=== PATIENT | male | born 1985 | race Hispanic/Latino ===

== ENCOUNTER 2021-07-16 07:28 | Emergency (ER) | payer OTHER ==
[~2021-07-16] VITALS: Ht 165.1 cm; Wt 90.7 kg
[2021-07-16 08:03] LABS: BASOPHILS % (AUTO) 0.6 % (0.0-5.0); EOSINOPHILS % (AUTO) 0.4 % (0.0-8.0); HEMATOCRIT 47.4 % (42-54); LYMPHOCYTES % (AUTO) 22.8 % (21.0-51.0); MEAN CORPUSCULAR HEMOGLOBIN 31.6 pg (27.0-33.0); MEAN CORPUSCULAR VOLUME 92.9 fL (79-99); MONOCYTES % (AUTO) 6.3 % (3.0-13.0); NEUTROPHILS % (AUTO) 69.7 % (40.0-77.0); PLATELET COUNT (AUTO) 340 K/uL (130-400); RED CELL DISTRIBUTION WIDTH 11.9 % (11.0-15.5); WHITE BLOOD COUNT (AUTO) 11.2 K/uL (4.8-10.8)
[2021-07-16 08:22] LABS: ALBUMIN 4.7 g/dL (3.5-5.0); CREATININE 1.1 mg/dL (0.5-1.5); POTASSIUM 3.4 mmol/L (3.5-5.1); TOTAL PROTEIN, SERUM 8.7 g/dL (6.0-8.3)
[2021-07-16] MEDS ORDERED: 0.9%NACL 1000ML 1,000 ML IV ONE ×2 (09:15→14:30)
[2021-07-16] MEDS ORDERED: LORAZEPAM 2 MG/ML 1 ML VIAL IVP SCH (10:30)
[2021-07-16 11:50] VITALS: BP 130/89
[2021-07-16 13:31] LABS: APPEARANCE,URINE Cloudy (CLEAR); BILIRUBIN,URINE Negative (NEGATIVE); COLOR,URINE Yellow (YELLOW); GLUCOSE, URINE (UA) Negative (NEGATIVE); KETONES,URINE >=80 mg/dL (NEGATIVE); LEUKOCYTE ESTERASE ,URINE Trace (NEGATIVE); NITRATE,URINE Negative (NEGATIVE); OCCULT BLOOD,URINE Small (NEGATIVE); PH,URINE >=9.0 (5.0-8.0); PROTEIN,URINE Trace mg/dL (NEGATIVE)
[2021-07-16 13:39] LABS: AMPHET/METH SCREEN,URINE NEGATIVE (NEGATIVE); BARBITURATE SCREEN, URINE NEGATIVE (NEGATIVE); BENZODIAZEPINES SCREEN,URINE NEGATIVE (NEGATIVE); CANNABINOID SCREEN,URINE POSITIVE (NEGATIVE); COCAINE SCREEN,URINE NEGATIVE (NEGATIVE); OPIATE SCREEN,URINE NEGATIVE (NEGATIVE); PHENCYCLIDINE SCREEN,URINE NEGATIVE (NEGATIVE)
[2021-07-16 13:44] LABS: AMORPHOUS SEDIMENT,UR Few /LPF (None Seen); BACTERIA,URINE Rare /HPF (None Seen); MUCUS,URINE Moderate LPF (None Seen); RBC,URINE 0-1 /HPF (0-1); SQUAMOUS EPITHELIAL CELL,UR Rare /HPF (0-2); WBC,URINE 0-1 /HPF (0-1)
== END 2021-07-16 15:22 | disposition home or self-care (01) ==
LOC: EDH 07:28
DX: S00.83XA Contusion of other part of head, initial encounter (principal); E86.0 Dehydration; F45.8 Other somatoform disorders; R29.0 Tetany; Z79.899 Other long term (current) drug therapy; X58.XXXA Exposure to other specified factors, initial encounter; Y93.89 Activity, other specified; Y92.89 Other specified places as the place of occurrence of the external cause; Y99.8 Other external cause status
CPT/HCPCS: 36415; 70450; 80053; 80305; 81001; 85025; 93005 ×2; 96361; 96374; 99285; J2060; J7030 ×2

== ENCOUNTER 2022-09-18 23:24 | Emergency (ER) | payer OTHER ==
[~2022-09-18] VITALS: Ht 167.6 cm; Wt 91.6 kg
[2022-09-18] MEDS ORDERED: TETRACAINE HCL 0.5% 4 ML OPHTH SOLN ONE (23:40)
[2022-09-18] MEDS ORDERED: FLUORESCEIN SODIUM 1 STRIP STRIP ONE (23:40)
[2022-09-18 23:44] LABS: BASOPHILS % (AUTO) 0.5 % (0.0-5.0); EOSINOPHILS % (AUTO) 2.5 % (0.0-8.0); HEMATOCRIT 42.2 % (42-54); LYMPHOCYTES % (AUTO) 20.5 % (21.0-51.0); MEAN CORPUSCULAR HEMOGLOBIN 31.4 pg (27.0-33.0); MEAN CORPUSCULAR HGB CONC 33.9 g/dL (32.0-36.0); MEAN CORPUSCULAR VOLUME 92.5 fL (79-99); MONOCYTES % (AUTO) 8.7 % (3.0-13.0); NEUTROPHILS % (AUTO) 67.5 % (40.0-77.0); PLATELET COUNT (AUTO) 274 K/uL (130-400); RED BLOOD CELL COUNT(AUTO) 4.56 MIL/uL (4.50-6.20); RED CELL DISTRIBUTION WIDTH 11.9 % (11.0-15.5); WHITE BLOOD COUNT (AUTO) 9.7 K/uL (4.8-10.8)
[2022-09-18 23:54] LABS: CREATININE 1.1 mg/dL (0.5-1.5); POTASSIUM 3.4 mmol/L (3.5-5.1)
[2022-09-18 23:58] LABS: ALBUMIN 3.9 g/dL (3.5-5.0); TOTAL PROTEIN, SERUM 7.3 g/dL (6.0-8.3)
[2022-09-19] MEDS ORDERED: TETRACAINE HCL 0.5% 4 ML OPHTH SOLN OP SCH
[2022-09-19] MEDS ORDERED: FLUORESCEIN SODIUM 1 STRIP STRIP OP SCH
[2022-09-19 04:27] VITALS: BP 112/68
[2022-09-19] MEDS ORDERED: ERYTHROMYCIN BASE 0.5% OPHTH OINT 1 GM TUBE OS ONE (04:30)
== END 2022-09-19 04:27 | disposition home or self-care (01) ==
LOC: EDH 23:24
DX: R51.9 Headache, unspecified (principal); H11.422 Conjunctival edema, left eye; Z90.49 Acquired absence of other specified parts of digestive tract
CPT/HCPCS: 36415; 70450; 71045; 80053; 84484; 85025; 93005

== ENCOUNTER 2024-04-18 07:26 | Emergency (ER) | payer BC ==
[~2024-04-18] VITALS: Ht 165.1 cm; Wt 86.2 kg
[2024-04-18 09:16] LABS: PROTHROMBIN TIME 10.8 SEC (9.6-11.6)
[2024-04-18 09:17] LABS: PARTIAL THROMBOPLASTIN TIME 29.1 SEC (26.3-35.5)
[2024-04-18] MEDS: FAMOTIDINE 20MG VIAL IV ONE (09:17)
[2024-04-18] MEDS: ONDANSETRON 4MG INJ IVP ONE (09:18)
[2024-04-18] MEDS: MORPHINE 2 MG SYG IVP ONE (09:18)
[2024-04-18 09:22] LABS: BASOPHILS # (AUTO) 0.04 K/uL (0.00-0.20); BASOPHILS % (AUTO) 0.6 % (0.0-5.0); EOSINOPHILS # (AUTO) 0.18 K/uL (0.00-0.70); EOSINOPHILS % (AUTO) 2.7 % (0.0-8.0); HEMATOCRIT 45.5 % (42-54); IMMATURE GRANULOCYTE ABSOLUTE 0.02 K/uL (0-1); LYMPHOCYTES # (AUTO) 1.1 K/uL (1.0-4.8); LYMPHOCYTES % (AUTO) 16.6 % (21.0-51.0); MEAN CORPUSCULAR HEMOGLOBIN 31.6 pg (27.0-33.0); MEAN CORPUSCULAR HGB CONC 34.7 g/dL (32.0-36.0); MONOCYTES # (AUTO) 0.5 K/uL (0.1-1.0); MONOCYTES % (AUTO) 6.8 % (3.0-13.0); NEUTROPHILS # (AUTO) 4.8 K/uL (1.8-7.7); PLATELET COUNT (AUTO) 287 K/uL (130-400); RED CELL DISTRIBUTION WIDTH 11.9 % (11.0-15.5); WHITE BLOOD COUNT (AUTO) 6.6 K/uL (4.8-10.8)
[2024-04-18 09:36] LABS: APPEARANCE,URINE CLEAR (CLEAR); BILIRUBIN,URINE NEGATIVE (NEGATIVE); COLOR,URINE COLORLESS (YELLOW); GLUCOSE, URINE (UA) NEGATIVE (NEGATIVE); KETONES,URINE NEGATIVE (NEGATIVE); LEUKOCYTE ESTERASE ,URINE NEGATIVE Leu/uL (NEGATIVE); NITRATE,URINE NEGATIVE (NEGATIVE); OCCULT BLOOD,URINE NEGATIVE (NEGATIVE); PH,URINE 7.5 (5.0-8.0); PROTEIN,URINE NEGATIVE (NEGATIVE); UROBILINOGEN,URINE 0.2 mg/dL (0.2-1.0)
[2024-04-18 09:38] LABS: BILIRUBIN,TOTAL 0.7 mg/dL (0.2-1.0); CREATININE 0.8 mg/dL (0.5-1.3); POTASSIUM 3.9 mmol/L (3.5-5.1); TOTAL PROTEIN, SERUM 7.4 g/dL (6.0-8.3)
[2024-04-18 09:41] LABS: ADD UA MICROSCOPIC NO
[2024-04-18] MEDS ORDERED: FAMO10TA39 PO (09:44)
[2024-04-18 10:36] VITALS: BP 106/77; PULSE 89; RESP 17; O2SAT 98
== END 2024-04-18 10:36 | disposition home or self-care (01) ==
LOC: EDH 07:26
DX: K29.70 Gastritis, unspecified, without bleeding (principal); R11.2 Nausea with vomiting, unspecified; K21.9 Gastro-esophageal reflux disease without esophagitis; Z90.49 Acquired absence of other specified parts of digestive tract; Z90.89 Acquired absence of other organs
CPT/HCPCS: 99284; 96374; 96375; 84484; 80053; 83690; 85025; 85610; 85730; 83605; 81003; 36415; 93005; J3490; J2270; J2405

== ENCOUNTER 2024-10-10 22:25 | Emergency (ER) | payer BC ==
[~2024-10-10] VITALS: Ht 167.6 cm; Wt 81.6 kg
[~2024-10-10 22:25] MED LIST: FAMO10TA39 PO
[2024-10-10 23:33] LABS: RAPID GROUP A STREP negative (NEGATIVE)
[2024-10-10 23:41] LABS: INFLUENZA TYPE A Negative For Type A (NEGATIVE); INFLUENZA TYPE B Negative For Type B (NEGATIVE)
[2024-10-10 23:47] LABS: SARS-CoV-2, RNA, NAAT NEGATIVE SARS CoV-2 (NEGATIVE)
[2024-10-11 00:11] LABS: BASOPHILS # (AUTO) 0.08 K/uL (0.00-0.20); BASOPHILS % (AUTO) 0.5 % (0.0-5.0); EOSINOPHILS # (AUTO) 0.58 K/uL (0.00-0.70); EOSINOPHILS % (AUTO) 3.7 % (0.0-8.0); HEMATOCRIT 42.2 % (42-54); IMMATURE GRANULOCYTE ABSOLUTE 0.04 K/uL (0-1); LYMPHOCYTES # (AUTO) 1.4 K/uL (1.0-4.8); LYMPHOCYTES % (AUTO) 8.7 % (21.0-51.0); MEAN CORPUSCULAR HEMOGLOBIN 31.9 pg (27.0-33.0); MEAN CORPUSCULAR HGB CONC 34.4 g/dL (32.0-36.0); MONOCYTES % (AUTO) 6.6 % (3.0-13.0); NEUTROPHILS # (AUTO) 12.7 K/uL (1.8-7.7); NEUTROPHILS % (AUTO) 80.2 % (40.0-77.0); PLATELET COUNT (AUTO) 300 K/uL (130-400); RED BLOOD CELL COUNT(AUTO) 4.54 MIL/uL (4.50-6.20); WHITE BLOOD COUNT (AUTO) 15.8 K/uL (4.8-10.8)
[2024-10-11 00:27] LABS: CREATININE 0.8 mg/dL (0.5-1.3); POTASSIUM 3.4 mmol/L (3.5-5.1)
[2024-10-11] MEDS: 0.9%NACL 1000ML 1,000 ML IV ONE (00:27)
[2024-10-11] MEDS: acetaMINOPHEN 500 MG TABLET PO ONE (00:27)
--- NOTE | 2024-10-11 00:31 | HMCIMG ---
CHEST 1VW HISTORY: Cough COMPARISON: 09/18/2022 FINDINGS: A frontal projection of the chest was obtained. Mild bilateral pulmonary infiltrates are seen may be related to mild pulmonary vascular congestion with possible superimposed pneumonitis. The heart is normal in size. No evidence of aortic calcification is seen. IMPRESSION: 1. Mild bilateral pulmonary infiltrates.
[2024-10-11 00:41] LABS: B-TYPE NATRIURETIC PEPTIDE < 5 pg/mL (0-100); WBC MORPHOLOGY CONSISTENT W/DIFF
[2024-10-11 00:42] LABS: PLATELET MORPHOLOGY LARGE PLTS PRESENT
[2024-10-11 01:17] VITALS: PULSE 94; RESP 18
[2024-10-11] MEDS: IpraTROPium/alBUTERol SULFATE 3 ML SOLUTION IH ONE (01:17)
--- NOTE | 2024-10-11 02:18 | ERN ---
ED Note History of Present Illness Stated Complaint: CHEST PAIN Chief Complaint: Cough Time Seen by MD: 22:30 Time Seen by Midlevel: 22:30 Dictation: The patient is a 39-year-old male with history of appendectomy who presents to the emergency department with complaints of chills, nasal congestion, nonproductive cough, shortness of breath and chest pain with coughing onset 2 hours ago. Allergies: Coded Allergies: No Known Drug Allergies (Unverified Allergy, Unknown, 07/16/21) Home Meds Active Scripts Famotidine (Pepcid AC) 10 Mg Tablet, 10 MG PO BID for 7 Days, #14 TAB Prov:RADHA ESTEVEZ MD 04/18/24 Past Medical History Past Medical History: No Pertinent History Surgical History: None Surgical History Other: EGD RN Note Reviewed/Agreed w/PFSH: Yes Review of System Dictation Constitutional: Negative for fever, and weight loss positive for chills Eyes: Negative for injury, pain,redness, and discharge ENT: Negative for injury,pain or swelling Cardiovascular: Negative for chest pain, palpitations, and edema Respiratory: Negative for and wheezing, positive for shortness of breath, cough, Abdomen/GI: Negative for abdominal pain, nausea, vomiting, diarrhea, and constipation Back: Negative for injury and pain : Negative for injury, bleeding and discharge MS/Extremity: Negative for injury and deformity Skin: Negative for rash, and discoloration Neuro: Negative for headache, weakness, numbness, tingling, and seizure Psych: Negative for suicide ideation, homicidal ideation, and hallucinations Initial Vital Sign VS Vital Signs Date Time Temp Pulse Resp B/P (MAP) Pulse Ox O2 Delivery O2 Flow Rate FiO2 10/10/24 22:43 100.4 109 20 114/65 97 Room Air 10/11/24 00:59 0 21 Physical Exam Dictation Vital Signs reviewed General Appearance: Alert, oriented x 3, no acute distress, well developed, nourished. Head and Face: non-traumatic. Eyes: PERRL, pink conjunctivas, eyelid no trauma, anterior chamber with arcus senilis. Ears: Pinnas intact and no signs of trauma or erythema ear canals clear and no discharge TM no erythema Nose: No discharge, no bleeding. Oropharynx: Mouth normal, tongue pink. pharynx clear,no erythema, tonsils no exudates, no abscesses noted, mucous membrane moist Neck: Supple, non-tender, no thyromegaly, no masses, no JVD, no bruits Breast:Deferred Chest:No tenderness, no crepitus, no paradoxical movement, no retractions Lungs:Clear, well-ventilated, symmetric, no rales, no wheezing, no rhonchi, no stridor, good breath sounds bilaterally Heart: Regular rate, regular rhythm, no murmur, no gallops Vascular: no peripheral edema, Abdomen: Soft, positive bowel sounds, nondistended, no guarding, nontender, no rebound, no masses no hepatomegaly, no splenomegaly, no Freeman's sign, no hernias. Rectal: Deferred Genital: Deferred Neurological: Normal speech, motor function intact, sensory function intact Musculoskeletal: Neck nontender, full range of motion, back nontender, full range of motion, Extremities: nontender, full range of motion Skin: Color pink, dry, no turgor, no rash, no lacerations, no abrasions, no contusions. Lymphatic: Deferred Results (Laboratory/Radiology) Laboratory/Radiology Laboratory Tests Test 10/10/24 22:55 10/10/24 23:36 Influenza Type A Antigen Negative For Type A Influenza Type B Antigen Negative For Type B SARS-CoV-2, RNA, NAAT NEGATIVE SARS CoV-2 Group A Streptococcus Rapid negative (NEGATIVE) White Blood Count 15.8 K/uL (4.8-10.8) H Red Blood Count 4.54 MIL/uL (4.50-6.20) Hemoglobin 14.5 g/dL (14.0-18.0) Hematocrit 42.2 % (42-54) Mean Corpuscular Volume 93.0 fL (79-99) Mean Corpuscular Hemoglobin 31.9 pg (27.0-33.0) Mean Corpuscular Hemoglobin Concent 34.4 g/dL (32.0-36.0) Red Cell Distribution Width 12.0 % (11.0-15.5) Platelet Count 300 K/uL (130-400) Mean Platelet Volume 9.9 fL (7.5-10.5) Immature Granulocyte % (Auto) 0.3 % (0-1) Neutrophils (%) (Auto) 80.2 % (40.0-77.0) H Lymphocytes (%) (Auto) 8.7 % (21.0-51.0) L Monocytes (%) (Auto) 6.6 % (3.0-13.0) Eosinophils (%) (Auto) 3.7 % (0.0-8.0) Basophils (%) (Auto) 0.5 % (0.0-5.0) Neutrophils # (Auto) 12.7 K/uL (1.8-7.7) H Lymphocytes # (Auto) 1.4 K/uL (1.0-4.8) Monocytes # (Auto) 1.0 K/uL (0.1-1.0) Eosinophils # (Auto) 0.58 K/uL (0.00-0.70) Basophils # (Auto) 0.08 K/uL (0.00-0.20) Absolute Immature Granulocyte (auto 0.04 K/uL (0-1) Nucleated Red Blood Cells 0.0 % (0.0-0.19) White Cell Morphology Comment CONSISTENT W/DIFF Platelet Morphology LARGE PLTS PRESENT Sodium Level 140 mmol/L (136-145) Potassium Level 3.4 mmol/L (3.5-5.1) L Chloride Level 104 mmol/L (101-111) Carbon Dioxide Level 30 mmol/L (21-32) Blood Urea Nitrogen 15 mg/dL (7-18) Creatinine 0.8 mg/dL (0.5-1.3) Glomerular Filtration Rate Calc 117 mL/min (>90) Random Glucose 95 mg/dL (70-105) Total Calcium 9.0 mg/dL (8.5-10.1) Troponin I High Sensitivity < 4 ng/L (4-75) L B-Type Natriuretic Peptide < 5 pg/mL (0-100) REASON: cough ORDERING PHYSICIAN: BONILLA STUBBS [facility] PROCEDURE: CXR1VW - CHEST 1VW CHEST 1VW HISTORY: Cough COMPARISON: 09/18/2022 FINDINGS: A frontal projection of the chest was obtained. Mild bilateral pulmonary infiltrates are seen may be related to mild pulmonary vascular congestion with possible superimposed pneumonitis. The heart is normal in size. No evidence of aortic calcification is seen. IMPRESSION: 1. Mild bilateral pulmonary infiltrates. Labs Reviewed?: Yes EKG: (+) rhythm (Sinus tachycardia) EKG Comment: Date:10/10/2024 Time:2247 Ventricular rate:111 HI interval:114 QRS duration:99 QT/QTc:311 EKG interpretation: Sinus tachycardia Reviewed by ED Attending no STEMI ED Course ED Course Orders Procedure Category Date Status Time Covid Rna Naat LAB 10/10/24 Complete 22:46 Influenza Type A & B, LAB 10/10/24 Complete Rapid 22:46 Rapid (Group A Strep) LAB 10/10/24 Complete 22:46 12 Lead Ekg Tracing- EKG 10/10/24 Logged Technical 22:46 Chest 1vw RAD 10/10/24 Resulted 22:51 Cbc With Differential LAB 10/10/24 Complete 23:13 Basic Metabolic Panel LAB 10/10/24 Complete 23:13 Troponin I High LAB 10/10/24 Complete Sensitivity 23:13 Acetaminophen 500mg PHA 10/10/24 Complete Tab (Tylenol 500mg T 23:30 Urinalysis Profile LAB 10/10/24 Logged Catherized 23:13 0.9%Nacl 1000ml (Ns PHA 10/10/24 Complete 1000ml) 23:30 B-Type Natriuretic LAB 10/10/24 Complete Peptide 23:13 Potassium Bicarb/Cit PHA 10/11/24 Complete Ac 25meq (K-Lyte Ta 01:00 Ipratropium/Albuterol PHA 10/11/24 Complete Neb (Duoneb) 01:00 Ceftriaxone 1g Vial PHA 10/11/24 Complete (Rocephine 1g Inj) 01:00 Current Medications Medications (Trade) Dose Ordered Sig/Rabia Route PRN Reason Start Time Stop Time Status Last Admin Dose Admin Acetaminophen (TYLenol 500MG TAB) 1,000 mg ONCE ONCE PO 10/10/24 23:30 10/10/24 23:31 DC 10/11/24 00:27 Albuterol (DUOneb) 1 UDVIAL ONCE ONCE IH 10/11/24 01:00 10/11/24 01:01 DC 10/11/24 01:17 Ceftriaxone Sodium (ROCEphine 1G INJ) 1 gm ONCE ONCE IVPB 10/11/24 01:00 10/11/24 01:01 DC Potassium Bicarbonate (K-Lyte Tablet Eff 25 Meq Tablet.eff) 25 meq ONCE ONCE PO 10/11/24 01:00 10/11/24 01:01 DC Sodium Chloride 1,000 ml @ 0 mls/hr ONCE ONCE IV 10/10/24 23:30 10/10/24 23:31 DC 10/11/24 00:27 Vital Signs Date Time Temp Pulse Resp B/P (MAP) Pulse Ox O2 Delivery O2 Flow Rate FiO2 10/11/24 01:17 94 18 10/11/24 00:59 100.0 75 18 128/65 99 Room Air* 0 21 10/10/24 22:43 100.4 109 20 114/65 97 Room Air HEART Score Response (Comments) Value History: Low suspicion (0) 0 EKG: Normal 0 Age: < 45yrs (0) 0 Risk Factors: No known risk factors (0) 0 Initial Troponin: Normal limit (0) 0 Total 0 Medical Decision Making MDM The patient is a 39-year-old male with history of appendectomy who presents to the emergency department with complaints of chills, nasal congestion, nonproductive cough, shortness of breath and chest pain with coughing onset 2 hours ago. CBC showed mild leukocytosis, no anemia, chemistry showed mild hypokalemia, negative troponin, chest x-ray showed mild pulmonary infiltrates. Patient reassessed. Patient at this time denies any chest pain or abdominal pain. Denies any discomfort. Reports feeling better. Patient nontoxic appearance. Nontender abdomen Patient will be discharged to follow up with primary doctor. Differential diagnosis: ACS, upper respiratory infection, pneumonia, dehydration Need for hospitalization: Patient does not meet criteria for hospitalization. There are no social concerns with this patient. DX & DISP Disposition: Discharge Departure Impression: Primary Impression: Pneumonitis Additional Impressions: Cough, Chest pain with low risk for cardiac etiology Condition: Stable Scripts Albuterol Sulfate (Ventolin Hfa/Proventil Hfa/Proair Hfa) 90 Mcg Puff 1 PUFF IH Q4H PRN for SHORTNESS OF BREATH for 5 Days, #1 INH 0 Refills PHARMACY TO DISPENSE 1 INHALER FOR USE Prov: BONILLA STUBBS COLLECTION TECHNICIAN 10/11/24 Methylprednisolone (Medrol) 4 Mg Tab.ds.pk 4 MG PO AD for 6 Days, #1 PACK Day 1: Take 2 tablets before breakfast,1 tablet after lunch and supper, and 2 tablets at bedtime. Day 2: Take1 tablet before breakfast,1 tablet after lunch,1 tablet after supper, and 2 tablets at bedtime. Day 3: Take 1 tablet before breakfast, 1 tablet after lunch, 1 tablet after supper, and 1 tablet at bedtime. Day 4: Take 1 tablet before breakfast, 1 tablet after lunch, and 1 tablet at bedtime. Day 5: Take1 tablet before breakfast and 1 tablet at bedtime. Day 6: Take 1 tablet before breakfast. Prov: DESEAN STUBBSHIREN PAUL 10/11/24 Azithromycin (Zithromax) 250 Mg Tablet 250 MG PO AD for 5 Days, #6 TAB Take 2 250 mg tablets on day 1, then take 1 250mg tablets daily for 4 days Prov: STUBBS,BONILLA PAUL 10/11/24 Additional Instructions: Please take medications as prescribed. If symptoms worsen please return to ER. FOLLOW-UP WITH PRIMARY CARE PROVIDER IN 1 TO 2 DAYS. TAKE MEDICATIONS DIRECTED HERE IN THE EMERGENCY ROOM. OKAY TO CONTINUE HOME MEDICATIONS UNLESS OTHERWISE DISCUSSED DURING YOUR VISIT IN THE EMERGENCY ROOM TODAY. RETURN TO YOUR NEAREST EMERGENCY ROOM IF SYMPTOMS WORSEN OR IF THERE IS NO IMPROVEMENT. CALL 911 IF YOU NEED IMMEDIATE ASSISTANCE. TAKE TYLENOL OR MOTRIN [id number] NEEDED AND IF NO CONTRAINDICATIONS ARE PRESENT. INCREASE ORAL HYDRATION. A WOUND CULTURE OR URINE CULTURE WAS ORDERED HERE IN THE EMERGENCY ROOM DEPARTMENT PLEASE FOLLOW-UP WITH PRIMARY CARE PROVIDER AND ADVISE THEM TO GET REPEAT PORTS FROM OUR FACILITY. IF YOU HAD ANY NATALY WRAP/SPLINTS THAT WERE APPLIED HERE, PLEASE DO NOT REMOVE THEM UNTIL YOU SEE YOUR PRIMARY CARE OR SPECIALTY. Referrals: ARNALDO GUZMAN MD (PCP) Time of Disposition: 02:51 I have reviewed the case, and I agree with, Diagnosis and Plan BONILLA STUBBS BEVERLY Oct 11, 2024 02:18
[2024-10-11] MEDS ORDERED: ALBUHFA IH (02:52)
[2024-10-11] MEDS ORDERED: METH4TAB3 PO (02:52)
[2024-10-11] MEDS ORDERED: AZIT250T PO (02:52)
[2024-10-11 03:23] LABS: APPEARANCE,URINE CLEAR (CLEAR); BILIRUBIN,URINE NEGATIVE (NEGATIVE); COLOR,URINE LIGHT-YELLOW (YELLOW); GLUCOSE, URINE (UA) NEGATIVE (NEGATIVE); KETONES,URINE NEGATIVE (NEGATIVE); LEUKOCYTE ESTERASE ,URINE NEGATIVE Leu/uL (NEGATIVE); NITRATE,URINE NEGATIVE (NEGATIVE); OCCULT BLOOD,URINE NEGATIVE (NEGATIVE); PH,URINE 5.5 (5.0-8.0); PROTEIN,URINE NEGATIVE (NEGATIVE); UROBILINOGEN,URINE 0.2 mg/dL (0.2-1.0)
[2024-10-11 03:31] LABS: ADD UA MICROSCOPIC YES
[2024-10-11] MEDS: PoTASSium BIcarbonate/CIT AC 25 MEQ TABLET.EFF PO ONE (03:31)
[2024-10-11] MEDS: cefTRIAXone 1G VIAL IVPB ONE (03:31)
[2024-10-11 03:33] LABS: MUCUS,URINE RARE LPF (None Seen); RBC,URINE 0-1 /HPF (0-1); SQUAMOUS EPITHELIAL CELL,UR RARE /HPF (0-2)
[2024-10-11 03:34] VITALS: BP 118/54; PULSE 78; RESP 19; TEMP 98.9; O2SAT 98
[2024-10-11 03:48] VITALS: TEMP 99
--- NOTE | 2024-10-11 06:06 | EKG ---
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
== END 2024-10-11 03:55 | disposition home or self-care (01) ==
LOC: EDH 22:25
DX: J18.9 Pneumonia, unspecified organism (principal); R05.9 Cough, unspecified; Z79.899 Other long term (current) drug therapy; Z20.822 Contact with and (suspected) exposure to COVID-19
CPT/HCPCS: 99284; 71045; 87635; 84484; 80048; 83880; 85025; 87086; 87880; 87804 ×2; 81001; 36415; 93005; 96365; 94640; J7030; J0696; 99285